=== PATIENT | female | born 1935 | race Caucasian/White ===

== ENCOUNTER 2016-07-23 23:20 | Emergency (ER) | payer MEDICARE, OTHER ==
[~2016-07-23] VITALS: Ht 134.6 cm; Wt 42.0 kg
[2016-07-23 23:22] VITALS: BP 130/84
[2016-07-24 00:17] LABS: BLOOD UREA NITROGEN 36 mg/dL (7-18)
[2016-07-24] MEDS ORDERED: HYDROcodone/APAP 5/325 TABLET ONE (00:20)
[2016-07-24] MEDS ORDERED: HYDROcodone/APAP 5/325 TABLET PO ONE (00:30)
== END 2016-07-24 01:07 | disposition home or self-care (01) ==
LOC: ED 23:59
DX: R04.0 Epistaxis (principal)
CPT/HCPCS: 30905; 36415; 80048; 82040; 85025; 85610; 85730; 99284

== ENCOUNTER 2016-08-05 09:41 | Emergency (ER) | payer MEDICARE ==
[~2016-08-05] VITALS: Ht 149.9 cm; Wt 39.0 kg
[2016-08-05] MEDS ORDERED: FLUT9.9S NAS (10:01)
[2016-08-05] MEDS ORDERED: METO-99 PO (10:01)
[2016-08-05] MEDS ORDERED: CALC3.7S5 NAS (10:01)
[2016-08-05] MEDS ORDERED: APIX2.5T PO (10:01)
[2016-08-05] MEDS ORDERED: ROPI1TAB2 PO (10:01)
[2016-08-05] MEDS ORDERED: SPIR25TA3 PO (10:01)
[2016-08-05] MEDS ORDERED: SIMV40TA3 PO (10:01)
[2016-08-05] MEDS ORDERED: FURO20TA3 PO (10:01)
[2016-08-05] MEDS ORDERED: LEVO50TA5 PO (10:01)
[2016-08-05] MEDS ORDERED: SILVER NITRATE STICK TP ONE (10:28)
[2016-08-05] MEDS ORDERED: BACITRACIN ZINC OINT 500U/GM, 0.9 GM ONE (10:28)
[2016-08-05] MEDS ORDERED: PHENYLEPHRINE NASAL 1%, 15ML SPRAY ONE (10:28)
[2016-08-05 11:17] VITALS: BP 84/60
== END 2016-08-05 11:46 | disposition home or self-care (01) ==
LOC: ED 10:06
DX: R04.0 Epistaxis (principal); I10 Essential (primary) hypertension; F17.200 Nicotine dependence, unspecified, uncomplicated
CPT/HCPCS: 30901; 99284

== ENCOUNTER 2017-04-18 17:00 | Inpatient (IN) | payer MEDICARE ==
[~2017-04-18] VITALS: Ht 149.9 cm; Wt 48.6 kg
[~2017-04-18 17:00] MED LIST: ACID1TAB3 PO; AMIO200T42 PO; APIX2.5T PO; CALC3.7S5 NAS; CEFD300C37 PO; FLUT9.9S NAS; FURO20TA3 PO; LEVO50TA5 PO; MAGN200T7 PO; METO-99 PO; POTA20TA14 PO; ROPI1TAB2 PO; SIMV40TA3 PO; SPIR25TA3 PO
[2017-04-18] MEDS ORDERED: SODIUM CHLORIDE 0.9% 1,000ML IVBOLUS ONE (18:00)
[2017-04-18 18:22] LABS: MEAN CORPUSCULAR HEMOGLOBIN 27.8 pg (27.0-34.8); MEAN CORPUSCULAR VOLUME 86.8 fL (80-100); RED BLOOD COUNT 3.35 x10^6/uL (3.82-5.3); RED CELL DISTRIBUTION WIDTH 18.6 % (9.6-15.2)
[2017-04-18 18:33] LABS: ALANINE AMINOTRANSFERASE 44 U/L (12-78); ALBUMIN 2.7 g/dL (3.4-5.0); ANION GAP 4 mmol/L (5-15); CALCIUM 8.4 mg/dL (8.5-10.1); CHLORIDE 108 mmol/L (98-107); CREATININE 1.08 mg/dL (0.55-1.02)
[2017-04-18 18:35] LABS: ALKALINE PHOSPHATASE 64 U/L (45-117); BILIRUBIN,TOTAL 1.1 mg/dL (0.2-1.0); TOTAL PROTEIN 5.3 g/dL (6.4-8.2)
[2017-04-18 18:37] LABS: BASOPHILS # (AUTO) 0.25 x10^3/uL (0-0.1); BASOPHILS % (AUTO) 1 % (0-1); EOSINOPHILS % (AUTO) 0 % (1-7); LYMPHOCYTES % (AUTO) 1 % (22-44); MD SCAN; MEAN PLATELET VOLUME 10.9 fL (7.4-10.4); MONOCYTES # (AUTO) 0.26 x10^3/uL (0.2-0.8); MONOCYTES % (AUTO) 1 % (2-9); NEUTROPHILS # (AUTO) 20.46 x10^3/uL (1.8-6.8); NEUTROPHILS % (AUTO) 97 % (42-75); PLATELET COUNT 86 x10^3/uL (130-400)
[2017-04-18 18:58] LABS: CULTURE INDICATED? YES; MICROSCOPIC INDICATED
[2017-04-18] MEDS ORDERED: DILTIAZEM 125 MG in DEXTROSE 5% 100 ML IV PRN (19:30)
[2017-04-18] MEDS ORDERED: SODIUM CHLORIDE 0.9% 1,000 ML IV SCH (19:44)
[2017-04-18] MEDS ORDERED: DOCUSATE 100 MG CAPSULE PO PRN (20:00)
[2017-04-18] MEDS ORDERED: FUROSEMIDE 20 MG/2 ML IV ONE (20:00)
[2017-04-18] MEDS ORDERED: morphine SULFATE 10 MG/ML, 1ML IVPush PRN (20:00)
[2017-04-18] MEDS ORDERED: DILTIAZEM 5 MG/ML, 5ML IVPush PRN (20:00)
[2017-04-18] MEDS ORDERED: ACETAMINOPHEN 325 MG TABLET PO PRN (20:00)
[2017-04-18] MEDS ORDERED: HYDROcodone/APAP 5/325 TABLET PO PRN (20:00)
[2017-04-18] MEDS ORDERED: ONDANSETRON 2MG/ML, 2ML IVPush PRN (20:00)
[2017-04-18] MEDS ORDERED: POLYETHYLENE GLYCOL 17 GM PACKET PO PRN (20:00)
[2017-04-18] MEDS: ALBUTEROL/IPRATROPIUM 2.5MG/0.5MG, 3 ML NPPB SCH (20:54)
[2017-04-18] MEDS ORDERED: ALBUTEROL SULFATE 2.5 MG/3 ML ONE (20:54)
[2017-04-18] MEDS ORDERED: CEFDINIR 300 MG CAPSULE PO SCH (21:00)
[2017-04-18] MEDS: CEFTRIAXONE PMX 1GM/50ML 50 ML IV SCH (21:22)
[2017-04-18] MEDS: NICOTINE 14MG/24 HR PATCH.TD24 TD SCH (21:33)
[2017-04-18] MEDS: SIMVASTATIN 40 MG TABLET PO SCH (21:35)
[2017-04-18] MEDS: APIXABAN 2.5 MG TABLET PO SCH (21:35)
[2017-04-18] MEDS: METOPROLOL TARTRATE 100 MG TABLET PO SCH ×2 (21:36→21:38)
[2017-04-18] MEDS: ROPINIROLE 1MG TABLET PO SCH (21:36)
[2017-04-18] MEDS ORDERED: ALBUTEROL SULFATE 2.5 MG/3 ML NPPB PRN (22:00)
[2017-04-19] MEDS: NYSTATIN 500,000 UNITS/5 ML UDC PO SCH ×4 (00:36→21:27)
[2017-04-19 05:01] VITALS: BP 76/37
[2017-04-19 05:16] VITALS: BP 109/46
[2017-04-19 05:18] LABS: MEAN CORPUSCULAR HEMOGLOBIN 28.1 pg (27.0-34.8); MEAN CORPUSCULAR HGB CONC 32.2 g/dL (32.4-35.8); MEAN CORPUSCULAR VOLUME 87.2 fL (80-100); RED BLOOD COUNT 2.88 x10^6/uL (3.82-5.3); RED CELL DISTRIBUTION WIDTH 18.1 % (9.6-15.2)
[2017-04-19 05:55] LABS: ANION GAP 4 mmol/L (5-15); CALCIUM 7.8 mg/dL (8.5-10.1); CHLORIDE 110 mmol/L (98-107); CREATININE 1.18 mg/dL (0.55-1.02)
[2017-04-19 05:55] LABS: BASOPHILS % (AUTO) 0 % (0-1); EOSINOPHILS # (AUTO) 0.01 x10^3/uL (0-0.4); EOSINOPHILS % (AUTO) 0 % (1-7); LYMPHOCYTES # (AUTO) 0.55 x10^3/uL (1-3.4); LYMPHOCYTES % (AUTO) 3 % (22-44); MD MORPH REVIEW ONLY; MEAN PLATELET VOLUME 11.2 fL (7.4-10.4); MONOCYTES # (AUTO) 0.39 x10^3/uL (0.2-0.8); MONOCYTES % (AUTO) 2 % (2-9); NEUTROPHILS # (AUTO) 18.78 x10^3/uL (1.8-6.8); NEUTROPHILS % (AUTO) 95 % (42-75); PLATELET COUNT 84 x10^3/uL (130-400)
[2017-04-19 05:56] LABS: ANISOCYTOSIS 1+; OVALOCYTES 1+; POLYCHROMASIA 1+
[2017-04-19 05:58] LABS: <PLATELET ESTIMATE> DECREASED; LARGE PLATELETS 1+
[2017-04-19 05:59] LABS: SCHISTOCYTES 1+
[2017-04-19 06:00] LABS: GIANT PLATELETS 1+
[2017-04-19 06:59] VITALS: BP_SYST 126; BP_SYST 94; BP_DIAS 49; BP_DIAS 73
[2017-04-19] MEDS: ALBUTEROL/IPRATROPIUM 2.5MG/0.5MG, 3 ML NPPB SCH ×4 (07:25→19:45)
[2017-04-19] MEDS: METOPROLOL TARTRATE 100 MG TABLET PO SCH (09:00)
[2017-04-19] MEDS: FUROSEMIDE 20 MG TABLET PO SCH (09:00)
[2017-04-19] MEDS: APIXABAN 2.5 MG TABLET PO SCH ×2 (09:05→21:27)
[2017-04-19] MEDS: POTASSIUM CHLORIDE 20 MEQ TAB.ER.PRT PO SCH (09:05)
[2017-04-19] MEDS: ASPIRIN 325 MG TABLET EC PO SCH (09:06)
[2017-04-19] MEDS: SENNA/DOCUSATE TABLET PO SCH (09:06)
[2017-04-19] MEDS: LEVOTHYROXINE 50 MCG TABLET PO SCH (09:06)
[2017-04-19] MEDS: AMIODARONE 200 MG TABLET PO SCH (09:07)
[2017-04-19] MEDS: SPIRONOLACTONE 25 MG TABLET PO SCH (09:07)
[2017-04-19] MEDS: FLUTICASONE NASAL SPRAY 16GM NAS SCH (11:17)
[2017-04-19 13:46] VITALS: BP 109/36
[2017-04-19] MEDS: SIMVASTATIN 40 MG TABLET PO SCH (21:27)
[2017-04-19] MEDS: ROPINIROLE 1MG TABLET PO SCH (21:27)
[2017-04-19] MEDS: NICOTINE 14MG/24 HR PATCH.TD24 TD SCH (21:27)
[2017-04-19 21:39] VITALS: BP 123/37
[2017-04-19] MEDS: CEFTRIAXONE PMX 1GM/50ML 50 ML IV SCH (22:39)
[2017-04-20 01:32] VITALS: BP 97/44
[2017-04-20 05:25] LABS: MEAN CORPUSCULAR HEMOGLOBIN 28.1 pg (27.0-34.8); MEAN CORPUSCULAR HGB CONC 32.1 g/dL (32.4-35.8); MEAN CORPUSCULAR VOLUME 87.3 fL (80-100); RED BLOOD COUNT 2.69 x10^6/uL (3.82-5.3); RED CELL DISTRIBUTION WIDTH 18.7 % (9.6-15.2)
[2017-04-20 05:30] LABS: ALBUMIN 2.3 g/dL (3.4-5.0); ANION GAP 5 mmol/L (5-15); CHLORIDE 112 mmol/L (98-107)
[2017-04-20 05:37] LABS: ALANINE AMINOTRANSFERASE 49 U/L (12-78); ALKALINE PHOSPHATASE 63 U/L (45-117); BILIRUBIN,TOTAL 0.7 mg/dL (0.2-1.0); CALCIUM 8.5 mg/dL (8.5-10.1); CHOL/HDL RATIO 1.5; CHOLESTEROL, TOTAL 93 mg/dL (140-239); CREATININE 1.21 mg/dL (0.55-1.02); HDL CHOL % 69 % (28-40); HDL CHOLESTEROL (DIRECT) 64 mg/dL (40-60); LDL CHOLESTEROL,CALCULATED 7 mg/dL (54-169); LDL/HDL RATIO 0.1 (0.5-3.0); TOTAL PROTEIN 4.8 g/dL (6.4-8.2); TRIGLYCERIDES 111 mg/dL (50-200); VLDL CHOLESTEROL 22 mg/dL (0-25)
[2017-04-20 05:56] LABS: MEAN PLATELET VOLUME 11.1 fL (7.4-10.4); PLATELET COUNT 62 x10^3/uL (130-400)
[2017-04-20 05:57] LABS: MD YES
[2017-04-20 05:59] LABS: ANISOCYTOSIS 1+; LYMPH#(MANUAL) 0.49 x10^3/uL (1-3.4); LYMPHS% (MANUAL) 3 % (22-44); MONOS#(MANUAL) 0.32 x10^3/uL (0.3-2.7); MONOS% (MANUAL) 2 % (2-9); NRBC % (MANUAL) 1 % (0-1); POLYCHROMASIA 1+; SEG#(MANUAL) 15.39 x10^3/uL (1.8-6.8); SEGS% (MANUAL) 95 % (42-75)
[2017-04-20 06:00] LABS: OVALOCYTES 1+
[2017-04-20 06:01] LABS: <PLATELET ESTIMATE> DECREASED; SCHISTOCYTES 1+
[2017-04-20 06:03] LABS: <PLT MORPHOLOGY> NORMAL PLT MORPH
[2017-04-20 06:40] VITALS: BP 108/51
[2017-04-20] MEDS: ALBUTEROL/IPRATROPIUM 2.5MG/0.5MG, 3 ML NPPB SCH ×4 (08:30→19:55)
[2017-04-20] MEDS: POTASSIUM CHLORIDE 20 MEQ TAB.ER.PRT PO SCH (09:00)
[2017-04-20] MEDS: AMIODARONE 200 MG TABLET PO SCH (09:49)
[2017-04-20] MEDS: FUROSEMIDE 20 MG TABLET PO SCH (09:49)
[2017-04-20] MEDS: ASPIRIN 325 MG TABLET EC PO SCH (09:49)
[2017-04-20] MEDS: APIXABAN 2.5 MG TABLET PO SCH ×2 (09:50→20:31)
[2017-04-20] MEDS: SPIRONOLACTONE 25 MG TABLET PO SCH (09:50)
[2017-04-20] MEDS: LEVOTHYROXINE 50 MCG TABLET PO SCH (09:50)
[2017-04-20] MEDS: NYSTATIN 500,000 UNITS/5 ML UDC PO SCH ×3 (09:51→20:35)
[2017-04-20] MEDS: FLUTICASONE NASAL SPRAY 16GM NAS SCH (09:57)
[2017-04-20 13:27] VITALS: BP 102/58
[2017-04-20 18:35] VITALS: BP 91/43
[2017-04-20] MEDS: SIMVASTATIN 40 MG TABLET PO SCH (20:31)
[2017-04-20] MEDS: ROPINIROLE 1MG TABLET PO SCH (20:31)
[2017-04-20] MEDS: SENNA/DOCUSATE TABLET PO SCH (20:31)
[2017-04-20] MEDS: NICOTINE 14MG/24 HR PATCH.TD24 TD SCH (20:31)
[2017-04-20] MEDS: CEFTRIAXONE PMX 1GM/50ML 50 ML IV SCH (20:33)
[2017-04-20 22:00] VITALS: BP 80/38
[2017-04-20] MEDS ORDERED: SODIUM CHLORIDE 0.9%, 500ML IVBOLUS ONE (22:30)
[2017-04-20 22:50] VITALS: BP_SYST 115; BP_SYST 90; BP_DIAS 41; BP_DIAS 44
[2017-04-21] VITALS (9 sets, daily range): BP systolic 82–147; BP diastolic 32–72
[2017-04-21] MEDS ORDERED: SODIUM CHLORIDE 0.45% 1,000 ML IV SCH (01:30)
[2017-04-21] MEDS: ALBUTEROL/IPRATROPIUM 2.5MG/0.5MG, 3 ML NPPB SCH ×4 (07:00→20:19)
[2017-04-21] MEDS ORDERED: NYST1000 PO (07:01)
[2017-04-21 07:43] LABS: ALANINE AMINOTRANSFERASE 58 U/L (12-78); ALBUMIN 2.3 g/dL (3.4-5.0); ANION GAP 6 mmol/L (5-15); CALCIUM 7.8 mg/dL (8.5-10.1); CHLORIDE 111 mmol/L (98-107); CREATININE 1.22 mg/dL (0.55-1.02)
[2017-04-21 07:45] LABS: ALKALINE PHOSPHATASE 53 U/L (45-117); BILIRUBIN,TOTAL 0.6 mg/dL (0.2-1.0); TOTAL PROTEIN 4.8 g/dL (6.4-8.2)
[2017-04-21 08:01] LABS: MEAN CORPUSCULAR HGB CONC 31.6 g/dL (32.4-35.8); MEAN CORPUSCULAR VOLUME 88.5 fL (80-100); MEAN PLATELET VOLUME 13.3 fL (7.4-10.4); PLATELET COUNT 65 x10^3/uL (130-400); RED BLOOD COUNT 2.48 x10^6/uL (3.82-5.3); RED CELL DISTRIBUTION WIDTH 18.4 % (9.6-15.2)
[2017-04-21 08:05] LABS: MD YES
[2017-04-21 08:07] LABS: BAND#(MANUAL) 0.28 x10^3/uL; BANDS%(MANUAL) 2 % (0-7); MONOS#(MANUAL) 0.85 x10^3/uL (0.3-2.7); MONOS% (MANUAL) 6 % (2-9); NRBC % (MANUAL) 1 % (0-1)
[2017-04-21 08:08] LABS: ANISOCYTOSIS 1+; HYPOCHROMIA 1+; LYMPH#(MANUAL) 0.28 x10^3/uL (1-3.4); LYMPHS% (MANUAL) 2 % (22-44); OVALOCYTES 1+; POLYCHROMASIA 1+; SCHISTOCYTES 1+; SEG#(MANUAL) 12.78 x10^3/uL (1.8-6.8); SEGS% (MANUAL) 90 % (42-75)
[2017-04-21 08:09] LABS: <PLATELET ESTIMATE> DECREASED; GIANT PLATELETS 1+; LARGE PLATELETS 1+
[2017-04-21] MEDS: POTASSIUM CHLORIDE 20 MEQ TAB.ER.PRT PO SCH (09:00)
[2017-04-21] MEDS: AMIODARONE 200 MG TABLET PO SCH (11:28)
[2017-04-21] MEDS: FLUTICASONE NASAL SPRAY 16GM NAS SCH (11:28)
[2017-04-21] MEDS: FUROSEMIDE 20 MG TABLET PO SCH (11:28)
[2017-04-21] MEDS: SENNA/DOCUSATE TABLET PO SCH (11:29)
[2017-04-21] MEDS: LEVOTHYROXINE 50 MCG TABLET PO SCH (11:29)
[2017-04-21] MEDS: NYSTATIN 500,000 UNITS/5 ML UDC PO SCH ×3 (11:29→21:37)
[2017-04-21] MEDS: SPIRONOLACTONE 25 MG TABLET PO SCH (11:29)
[2017-04-21] MEDS: LINEZOLID PMX 600MG/300ML 300 ML IV SCH (16:18)
[2017-04-21] MEDS ORDERED: maalox/diphenh/lido/sucralfate 5 ML PO PRN (21:00)
[2017-04-21] MEDS: SIMVASTATIN 40 MG TABLET PO SCH (21:37)
[2017-04-21] MEDS: ROPINIROLE 1MG TABLET PO SCH (21:38)
[2017-04-21] MEDS: NICOTINE 14MG/24 HR PATCH.TD24 TD SCH (21:38)
[2017-04-22 00:42] VITALS: BP 101/42
[2017-04-22] MEDS: LINEZOLID PMX 600MG/300ML 300 ML IV SCH (04:22)
[2017-04-22 07:53] LABS: INTERNATIONAL NORMALIZED RATIO 1.28 (0.93-1.1); PROTHROMBIN TIME 13.1 Seconds (9.6-11.5)
[2017-04-22 07:55] LABS: ANION GAP 5 mmol/L (5-15); CHLORIDE 111 mmol/L (98-107); CREATININE 1.35 mg/dL (0.55-1.02)
[2017-04-22 08:08] LABS: MEAN CORPUSCULAR HEMOGLOBIN 28.6 pg (27.0-34.8); MEAN CORPUSCULAR HGB CONC 31.9 g/dL (32.4-35.8); MEAN CORPUSCULAR VOLUME 89.6 fL (80-100); RED BLOOD COUNT 3.96 x10^6/uL (3.82-5.3); RED CELL DISTRIBUTION WIDTH 16.6 % (9.6-15.2)
[2017-04-22] MEDS: ALBUTEROL/IPRATROPIUM 2.5MG/0.5MG, 3 ML NPPB SCH (08:20)
[2017-04-22 08:27] LABS: MEAN PLATELET VOLUME 11.2 fL (7.4-10.4)
[2017-04-22 08:48] LABS: PLATELET COUNT 75 x10^3/uL (130-400)
[2017-04-22 08:51] LABS: MD YES
[2017-04-22 08:52] LABS: LYMPH#(MANUAL) 0.28 x10^3/uL (1-3.4); LYMPHS% (MANUAL) 2 % (22-44); MONOS#(MANUAL) 0.14 x10^3/uL (0.3-2.7); MONOS% (MANUAL) 1 % (2-9); NRBC % (MANUAL) 3 % (0-1); SEG#(MANUAL) 13.77 x10^3/uL (1.8-6.8); SEGS% (MANUAL) 97 % (42-75)
[2017-04-22 08:53] LABS: <PLATELET ESTIMATE> DECREASED; ANISOCYTOSIS 1+; LARGE PLATELETS 1+; POLYCHROMASIA 1+
[2017-04-22 08:54] LABS: OVALOCYTES 1+
[2017-04-22] MEDS ORDERED: SCOPOLAMINE PATCH, 1.5MG PATCH.TD72 TD ONE (10:30)
[2017-04-22] MEDS ORDERED: PROCHLORPERAZINE 5 MG/ML, 2ML IVPush PRN (10:30)
[2017-04-22] MEDS: ATROPINE OPHTH SOLN 1%, 5ML BC PRN ×2 (10:36→15:11)
[2017-04-22] MEDS: LORazepam 2 MG/ML, 1ML IVPush PRN ×3 (10:46→21:33)
[2017-04-22] MEDS: MORPHINE SULFATE 4 MG/ML, 1ML IVPush PRN ×3 (10:47→21:33)
== END 2017-04-23 05:45 | disposition expired | DRG 871 ==
LOC: ED 17:43 → EDIP 19:14 → 5SO 20:25 → CCU 04-22 07:56 → 3NW 04-22 11:15
PROVIDERS: ADMIT Family Medicine; ATTEND Hospitalist
PROC: 0T9B70Z Drainage of Bladder with Drainage Device, Via Natural or Artificial Opening (ICD-10-PCS; 2017-04-18)
PROC: 30233N1 Transfusion of Nonautologous Red Blood Cells into Peripheral Vein, Percutaneous Approach (ICD-10-PCS; principal; 2017-04-21)
DX: A41.9 Sepsis, unspecified organism (principal); J96.21 Acute and chronic respiratory failure with hypoxia; G93.40 Encephalopathy, unspecified; E44.0 Moderate protein-calorie malnutrition; J18.9 Pneumonia, unspecified organism; E87.5 Hyperkalemia; D68.69 Other thrombophilia; D62 Acute posthemorrhagic anemia; D69.6 Thrombocytopenia, unspecified; J96.22 Acute and chronic respiratory failure with hypercapnia; J98.11 Atelectasis; J44.0 Chronic obstructive pulmonary disease with (acute) lower respiratory infection; I24.8 Other forms of acute ischemic heart disease; I48.2 Chronic atrial fibrillation; E03.9 Hypothyroidism, unspecified; E78.5 Hyperlipidemia, unspecified; F17.210 Nicotine dependence, cigarettes, uncomplicated; I73.9 Peripheral vascular disease, unspecified; G25.81 Restless legs syndrome; I11.0 Hypertensive heart disease with heart failure; I25.10 Atherosclerotic heart disease of native coronary artery without angina pectoris; I25.2 Old myocardial infarction; I50.9 Heart failure, unspecified; Z51.5 Encounter for palliative care; Z66 Do not resuscitate; Z79.01 Long term (current) use of anticoagulants; Z82.49 Family history of ischemic heart disease and other diseases of the circulatory system; Z87.01 Personal history of pneumonia (recurrent); Z90.710 Acquired absence of both cervix and uterus; Z95.5 Presence of coronary angioplasty implant and graft; Z99.81 Dependence on supplemental oxygen; Z68.21 Body mass index [BMI] 21.0-21.9, adult
CPT/HCPCS: 36415; 36600; 70450; 71045; 80048; 80053; 80061; 81001; 82803; 82962; 83605; 83735; 84100; 84484; 85025; 85610; 85730; 86850; 86870; 86900; 86922; 86923; 87040; 87077; 87081; 87086; 87106; 87186; 93005; 93922; 93925; 94640; 96360; J0696; J2020; J7620; J1940; J2060; J7030; J7040; P9016